=== PATIENT | female | born 1950 | race Caucasian/White ===

== ENCOUNTER 2017-04-20 09:45 | Inpatient (IN) | payer MEDICARE ==
[~2017-04-20] VITALS: Ht 161.3 cm; Wt 71.4 kg
[2017-05-04] MEDS ORDERED: ZOLP10TA5 PO (10:46)
[2017-05-04] MEDS ORDERED: CHOL400T PO (10:46)
[2017-05-04] MEDS ORDERED: MULT-1085 PO (10:46)
[2017-05-04] MEDS ORDERED: RED600TA PO (10:46)
[2017-05-04 11:12] LABS: BASOPHILS % (AUTO) 0.3 % (0-1); EOSINOPHILS # (AUTO) 0.1 X10'3 (0-0.9); EOSINOPHILS % (AUTO) 0.8 % (0-6); LYMPHOCYTES # (AUTO) 1.6 X10'3 (1.1-4.8); LYMPHOCYTES % (AUTO) 26.1 % (21-51); MEAN CORPUSCULAR HGB CONC 35.3 % (33.0-36.5); MEAN CORPUSCULAR VOLUME 93.7 FL (78-98); MEAN PLATELET VOLUME 7.4 FL (7.4-10.4); MONOCYTES # (AUTO) 0.4 X10'3 (0-0.9); MONOCYTES % (AUTO) 6.3 % (2-12); NEUTROPHILS # (AUTO) 4.1 X10'3 (1.8-7.7); NEUTROPHILS % (AUTO) 66.5 % (42-75); PRE OP HEMATOCRIT 36.6 % (35.0-45.0); PRE OP HEMOGLOBIN 12.9 g/dL (12.0-16.0); PRE OP PLATELET COUNT 262 X10'3 (140-440); RED BLOOD COUNT 3.91 X10'6 (4.20-5.60); RED CELL DISTRIBUTION WIDTH 13.5 % (11.5-14.5)
[2017-05-04 11:29] LABS: ALBUMIN 4.2 G/DL (3.4-5.0); ALBUMIN/GLOBULIN RATIO 1.2 (1.1-1.5); ALKALINE PHOSPHATASE 78 IU/L (46-116); BLOOD UREA NITROGEN 14 MG/DL (7-18); CALCIUM 9.1 MG/DL (8.5-10.1); CHLORIDE 102 MMOL/L (99-107); PRE OP ALT 28 U/L (30-65); PRE OP ANION GAP 5 (8-16); PRE OP AST 16 U/L (10-37); PRE OP BILIRUB, TOTAL 0.4 MG/DL (0.0-1.0); PRE OP GLUCOSE 113 MG/DL (70-104); PRE OP POTASSIUM 4.1 MMOL/L (3.4-5.1); PRE OP SODIUM 137 MMOL/L (135-145); TOTAL CARBON DIOXIDE 29.7 MMOL/L (24-32); TOTAL PROTEIN 7.8 G/DL (6.4-8.2); eGFR 83 ML/MIN
[2017-05-11] VITALS (10 sets, daily range): BP systolic 125–191; BP diastolic 40–92
[2017-05-11] MEDS ORDERED: ringers solution, lacted 1,000 ML IV SCH ×2 (05:00→13:42)
[2017-05-11] MEDS ORDERED: tranexamic acid inj. 720 MG in normal saline 100ml IV soln 92.8 ML IV ONE ×2 (05:30→09:30)
[2017-05-11] MEDS ORDERED: VANCOMYCIN INJ 1000 MG in NORMAL SALINE 250ml IV.SOLN IV ONE (05:30)
[2017-05-11] MEDS ORDERED: famotidine 20mg tablet PO ONE (05:30)
[2017-05-11] MEDS ORDERED: cefazolin/dext.iso 2gm/50ml 50 ML IV ONE (05:30)
[2017-05-11] MEDS ORDERED: IBUP-24 PO (12:47)
[2017-05-11] MEDS ORDERED: morphine 2 MG/ML inj. syringe IV PRN ×2 (13:45)
[2017-05-11] MEDS ORDERED: meperidine/PF 25mg/ml syringe IV PRN ×2 (13:45)
[2017-05-11] MEDS ORDERED: ondansetron/PF 4mg/2ml inj IV PRN ×2 (13:45→19:05)
[2017-05-11] MEDS ORDERED: meperidine/PF 25mg/ml syringe IV ONE (13:45)
[2017-05-11] MEDS ORDERED: proCHLORperazine 10 MG/2 ml inj IV PRN (13:45)
[2017-05-11] MEDS ORDERED: ROPIVAcaine 0.5% (5mg/ml) 30ml vial ONE (14:26)
[2017-05-11] MEDS ORDERED: ketorolac trometh. 30mg/ml inj. ONE (14:26)
[2017-05-11] MEDS ORDERED: vancomycin 1,000mg inj ONE ×2 (14:26→18:00)
[2017-05-11] MEDS ORDERED: MIDAZolam 1mg/ml 10ml vial ONE (15:29)
[2017-05-11] MEDS ORDERED: cloNIDine hcl/PF 100mcg/ml inj ONE (15:45)
[2017-05-11] MEDS ORDERED: BUPIVAcaine/PF 2.5 mg/ml (0.25%) 30ml vial ONE (16:14)
[2017-05-11] MEDS ORDERED: MORPHINE SULFATE/PF 0.5 MG/ML 10ML AMPUL ONE (16:14)
[2017-05-11] MEDS ORDERED: dexamethasone sod phosphate 4mg/ml inj. ONE (16:14)
[2017-05-11] MEDS ORDERED: propofol inj 20 ML IV ONE (16:14)
[2017-05-11] MEDS ORDERED: epiNEPHrine 1 mg/ml inj ONE (16:15)
[2017-05-11] MEDS ORDERED: ceFAZolin 1000mg inj ONE (18:15)
[2017-05-11] MEDS: potassium cl 20mEq in 1/2 NS 1,000 ML IV SCH (19:04)
[2017-05-11] MEDS ORDERED: magnesium hydroxide 30ml (MOM) UD suspension PO PRN (19:05)
[2017-05-11] MEDS ORDERED: HYDROmorphone 1 mg/ml syringe IV PRN ×2 (19:05)
[2017-05-11] MEDS ORDERED: ibuprofen 200mg tablet PO PRN (19:05)
[2017-05-11] MEDS ORDERED: mag hydrox/Alum hydrox/simeth 30ml oral suspension PO PRN (19:05)
[2017-05-11] MEDS ORDERED: bisacodyl 10mg suppository rectal RC PRN (19:05)
[2017-05-11] MEDS ORDERED: diphenhydrAMINE 25mg capsule PO PRN ×2 (19:05)
[2017-05-11] MEDS ORDERED: zolpidem 5mg tablet PO PRN (19:05)
[2017-05-11] MEDS ORDERED: acetaminophen 325mg tablet PO PRN (19:05)
[2017-05-11] MEDS ORDERED: acetaminophen 325mg tablet PO SCH (20:00)
[2017-05-11] MEDS ORDERED: vancomycin/NS 1 GM ADD-VANTAGE 250 ML IV SCH (20:00)
[2017-05-11] MEDS: celeCOXIB 100mg capsule PO SCH (20:00)
[2017-05-11] MEDS: sennosides 8.6mg tablet PO SCH (20:08)
[2017-05-11] MEDS: ketorolac tromethamine 15mg/ml inj. IV SCH (20:15)
[2017-05-11] MEDS: gabapentin 300mg capsule PO SCH (20:51)
[2017-05-11] MEDS ORDERED: tranexamic acid inj. 720 MG in normal saline 100ml IV soln 100 ML IV ONE (22:05)
[2017-05-12] MEDS: cefazolin 1gm/NS 100mL 100 ML IV SCH ×2 (00:03→08:06)
[2017-05-12] MEDS: ketorolac tromethamine 15mg/ml inj. IV SCH ×4 (01:30→20:33)
[2017-05-12] MEDS: potassium cl 20mEq in 1/2 NS 1,000 ML IV SCH ×3 (01:30→17:25)
[2017-05-12 02:00] VITALS: BP 137/66
[2017-05-12] MEDS: oxyCODONE IR 5mg (immed. release) tablet PO PRN ×5 (05:10→21:32)
[2017-05-12 06:00] VITALS: BP 133/62
[2017-05-12 06:05] LABS: BASOPHILS % (AUTO) 0.2 % (0-1); EOSINOPHILS # (AUTO) 0.1 X10'3 (0-0.9); EOSINOPHILS % (AUTO) 1.1 % (0-6); HEMATOCRIT 30.7 % (35.0-45.0); HEMOGLOBIN 10.6 g/dl (12.0-16.0); LYMPHOCYTES # (AUTO) 0.7 X10'3 (1.1-4.8); LYMPHOCYTES % (AUTO) 9.8 % (21-51); MEAN CORPUSCULAR HEMOGLOBIN 32.8 PG (27.0-31.0); MEAN CORPUSCULAR HGB CONC 34.6 % (33.0-36.5); MEAN CORPUSCULAR VOLUME 94.7 FL (78-98); MEAN PLATELET VOLUME 7.7 FL (7.4-10.4); MONOCYTES # (AUTO) 0.5 X10'3 (0-0.9); MONOCYTES % (AUTO) 6.5 % (2-12); NEUTROPHILS # (AUTO) 6.1 X10'3 (1.8-7.7); NEUTROPHILS % (AUTO) 82.4 % (42-75); PLATELET COUNT 209 X10'3 (140-440); RED BLOOD COUNT 3.25 X10'6 (4.20-5.60); RED CELL DISTRIBUTION WIDTH 13.1 % (11.5-14.5); WHITE BLOOD COUNT 7.4 X10'3 (4.5-11.0)
[2017-05-12 06:32] LABS: ANION GAP 8 (8-16); CHLORIDE 102 MMOL/L (99-107); POTASSIUM 4.5 MMOL/L (3.5-5.1); SODIUM 136 MMOL/L (135-145); TOTAL CARBON DIOXIDE 26.2 MMOL/L (24-32)
[2017-05-12] MEDS ORDERED: RED YEAST RICE 600 MG PO SCH (08:00)
[2017-05-12] MEDS: aspirin 325mg tablet PO SCH (08:06)
[2017-05-12] MEDS: celeCOXIB 100mg capsule PO SCH (08:07)
[2017-05-12] MEDS: gabapentin 300mg capsule PO SCH ×3 (08:07→20:33)
[2017-05-12] MEDS: multivitamins, therapeutics tablet PO SCH (08:07)
[2017-05-12 10:00] VITALS: BP 120/63
[2017-05-12 14:00] VITALS: BP 126/64
[2017-05-12] MEDS: Protein Shake (high protein) 240ml (8oz) cup PO SCH (18:00)
[2017-05-12 20:08] VITALS: BP 125/81
[2017-05-12] MEDS: sennosides 8.6mg tablet PO SCH (20:33)
[2017-05-12 22:00] VITALS: BP 117/49
[2017-05-13] MEDS: ketorolac tromethamine 15mg/ml inj. IV SCH (01:48)
[2017-05-13] MEDS: oxyCODONE IR 5mg (immed. release) tablet PO PRN ×3 (05:30→14:01)
[2017-05-13 06:00] VITALS: BP 132/71
[2017-05-13 06:18] LABS: BASOPHILS % (AUTO) 0.3 % (0-1); EOSINOPHILS # (AUTO) 0.1 X10'3 (0-0.9); EOSINOPHILS % (AUTO) 1.5 % (0-6); HEMATOCRIT 27.8 % (35.0-45.0); HEMOGLOBIN 9.8 g/dl (12.0-16.0); LYMPHOCYTES # (AUTO) 2.2 X10'3 (1.1-4.8); LYMPHOCYTES % (AUTO) 35.5 % (21-51); MEAN CORPUSCULAR HGB CONC 35.2 % (33.0-36.5); MEAN CORPUSCULAR VOLUME 93.7 FL (78-98); MEAN PLATELET VOLUME 7.8 FL (7.4-10.4); MONOCYTES # (AUTO) 0.6 X10'3 (0-0.9); MONOCYTES % (AUTO) 10.3 % (2-12); NEUTROPHILS # (AUTO) 3.2 X10'3 (1.8-7.7); NEUTROPHILS % (AUTO) 52.4 % (42-75); PLATELET COUNT 181 X10'3 (140-440); RED BLOOD COUNT 2.97 X10'6 (4.20-5.60); RED CELL DISTRIBUTION WIDTH 13.3 % (11.5-14.5); WHITE BLOOD COUNT 6.1 X10'3 (4.5-11.0)
[2017-05-13] MEDS: multivitamins, therapeutics tablet PO SCH (07:44)
[2017-05-13] MEDS: gabapentin 300mg capsule PO SCH ×2 (07:44→13:12)
[2017-05-13] MEDS: aspirin 325mg tablet PO SCH (07:44)
[2017-05-13] MEDS: Protein Shake (high protein) 240ml (8oz) cup PO SCH ×2 (08:00→13:12)
[2017-05-13] MEDS ORDERED: celeCOXIB 100mg capsule PO ONE (08:05)
[2017-05-13] MEDS ORDERED: celeCOXIB 100mg capsule PO SCH ×2 (08:05→20:00)
[2017-05-13] MEDS ORDERED: ASPI-1 PO (08:45)
[2017-05-13 10:00] VITALS: BP 119/54
[2017-05-13] MEDS ORDERED: acetaminophen 325mg tablet PO PRN (19:05)
== END 2017-05-13 15:30 | disposition home health service (06) | DRG 470 ==
LOC: EDSTATUS 09:45 → PAS IN 05-11 11:41 → ORTHO 4S 05-11 20:03
PROVIDERS: ADMIT Orthopaedic Surgery; ATTEND Orthopaedic Surgery
PROC: 0SRC0JZ Replacement of Right Knee Joint with Synthetic Substitute, Open Approach (ICD-10-PCS; 2017-05-11)
PROC: 3E0T3BZ Introduction of Anesthetic Agent into Peripheral Nerves and Plexi, Percutaneous Approach (ICD-10-PCS; 2017-05-11)
PROC: 8E0Y0CZ Robotic Assisted Procedure of Lower Extremity, Open Approach (ICD-10-PCS; 2017-05-11)
PROC: 8E0YXBZ Computer Assisted Procedure of Lower Extremity (ICD-10-PCS; principal; 2017-05-11 15:24)
DX: M17.11 Unilateral primary osteoarthritis, right knee (principal); D62 Acute posthemorrhagic anemia; Z79.899 Other long term (current) drug therapy; Z80.9 Family history of malignant neoplasm, unspecified; Z82.49 Family history of ischemic heart disease and other diseases of the circulatory system
CPT/HCPCS: 36415; 80051; 80053; 85025; 87070; 97110; 97116; 97161; 97530; A7000; C1713; C1758; C1776; J0171; J0690; J0735; J1100; J1885; J2250; J2274; J2405; J2704; J2795; J3370; J3490; J7030; J7120; Q0163

== ENCOUNTER 2018-06-21 14:15 | Inpatient (IN) | payer MEDICARE ==
[~2018-06-21] VITALS: Ht 160 cm; Wt 68.7 kg
[2018-09-06 10:59] LABS: BASOPHILS % (AUTO) 0.2 % (0-1); EOSINOPHILS # (AUTO) 0.1 X10'3 (0-0.9); EOSINOPHILS % (AUTO) 1.6 % (0-6); LYMPHOCYTES # (AUTO) 1.8 X10'3 (1.1-4.8); LYMPHOCYTES % (AUTO) 25.7 % (21-51); MEAN CORPUSCULAR HEMOGLOBIN 31.7 PG (27.0-31.0); MEAN CORPUSCULAR VOLUME 93.1 FL (78-98); MEAN PLATELET VOLUME 7.4 FL (7.4-10.4); MONOCYTES # (AUTO) 0.5 X10'3 (0-0.9); MONOCYTES % (AUTO) 7.7 % (2-12); NEUTROPHILS # (AUTO) 4.5 X10'3 (1.8-7.7); NEUTROPHILS % (AUTO) 64.8 % (42-75); PRE OP HEMATOCRIT 35.8 % (35.0-45.0); PRE OP HEMOGLOBIN 12.2 g/dL (12.0-16.0); PRE OP PLATELET COUNT 282 X10'3 (140-440); RED BLOOD COUNT 3.85 X10'6 (4.20-5.60); RED CELL DISTRIBUTION WIDTH 13.4 % (11.5-14.5)
[2018-09-06 11:11] LABS: ALBUMIN 3.9 G/DL (3.4-5.0); ALKALINE PHOSPHATASE 86 IU/L (46-116); BLOOD UREA NITROGEN 18 MG/DL (7-18); BUN/CREATININE RATIO 27.7 (6.6-38.0); CALCIUM 9.1 MG/DL (8.5-10.1); CHLORIDE 101 MMOL/L (99-107); CREATININE 0.65 MG/DL (0.40-0.90); PRE OP ALT 23 U/L (30-65); PRE OP ANION GAP 7 (8-16); PRE OP AST 13 U/L (10-37); PRE OP BILIRUB, TOTAL 0.3 MG/DL (0.0-1.0); PRE OP GLUCOSE 90 MG/DL (70-104); PRE OP POTASSIUM 4.3 MMOL/L (3.4-5.1); PRE OP SODIUM 135 MMOL/L (135-145); TOTAL CARBON DIOXIDE 26.8 MMOL/L (24-32); TOTAL PROTEIN 7.9 G/DL (6.4-8.2); eGFR 90 ML/MIN
[2018-09-06] MEDS ORDERED: ACET-2119 PO (13:18)
[2018-09-06] MEDS ORDERED: GABA-532 PO (13:18)
[2018-09-13] VITALS (17 sets, daily range): BP systolic 124–170; BP diastolic 48–98
[2018-09-13] MEDS ORDERED: LIDOcaine 1% (10mg/ml) 2ml vial ONE (06:35)
[2018-09-13] MEDS ORDERED: famotidine 20mg tablet PO ONE (07:15)
[2018-09-13] MEDS ORDERED: ringers solution, lacted 1,000 ML IV SCH ×2 (07:15→11:27)
[2018-09-13] MEDS ORDERED: VANCOMYCIN INJ 1000 MG in NORMAL SALINE 250ml IV.SOLN IV ONE (07:15)
[2018-09-13] MEDS ORDERED: cefazolin/dext.iso 2gm/100 ML IV ONE (07:15)
[2018-09-13] MEDS ORDERED: tranexamic acid inj. 700 MG in normal saline 100ml IV soln 100 ML IV ONE ×3 (07:15→15:32)
[2018-09-13] MEDS ORDERED: MIDAZolam 1mg/ml 10ml vial ONE (09:29)
[2018-09-13] MEDS ORDERED: fentaNYL/PF 50MCG/1 ML 2ML syringe ONE (09:30)
[2018-09-13] MEDS ORDERED: propofol inj 20 ML IV ONE (09:50)
[2018-09-13] MEDS ORDERED: ROPIVAcaine 0.5% (5mg/ml) 30ml vial ONE ×2 (11:01→11:43)
[2018-09-13] MEDS ORDERED: ketorolac trometh. 30mg/ml inj. ONE (11:01)
[2018-09-13] MEDS ORDERED: meperidine/PF 25mg/ml syringe IV PRN ×3 (11:30)
[2018-09-13] MEDS ORDERED: ondansetron/PF 4mg/2ml inj IV PRN (11:30)
[2018-09-13] MEDS ORDERED: morphine 4 MG/ML inj SYRINge IV PRN ×2 (11:30)
[2018-09-13] MEDS ORDERED: proCHLORperazine 10 MG/2 ml inj IV PRN (11:30)
[2018-09-13] MEDS ORDERED: diphenhydrAMINE 50 mg/ml inj ONE (11:43)
[2018-09-13] MEDS ORDERED: acetaminophen 325mg tablet PO PRN (12:30)
[2018-09-13] MEDS ORDERED: bisacodyl 10mg suppository rectal RC PRN (12:30)
[2018-09-13] MEDS ORDERED: diphenhydrAMINE 25mg capsule PO PRN ×2 (12:30)
[2018-09-13] MEDS ORDERED: magnesium hydroxide 30ml (MOM) UD suspension PO PRN (12:30)
--- NOTE | 2018-09-13 12:30 | NUR ---
Received from OR via bed, accompanied by Anesthesiologist. Report received. Initial physical assessment done and recorded.
[2018-09-13] MEDS: ROPIVAcaine 0.2%/PF PAIN PUMP 550 ML IJ SCH (13:48)
[2018-09-13] MEDS: acetaminophen 325mg tablet PO SCH ×2 (14:00→20:04)
--- NOTE | 2018-09-13 14:00 | NUR ---
Discharge criteria met, report to receiving floor. Transferred to room in stable condition.
[2018-09-13] MEDS: gabapentin 300mg capsule PO SCH ×2 (15:58→21:00)
[2018-09-13] MEDS: ketorolac tromethamine 15mg/ml inj. IV SCH ×2 (15:58→22:27)
[2018-09-13] MEDS: oxyCODONE IR 5mg (immed. release) tablet PO PRN (17:45)
[2018-09-13] MEDS: ceFAZolin 1GM/D5W- ADD-VANTAGE 50 ML IV SCH (17:46)
[2018-09-13] MEDS: potassium cl 20mEq in 1/2 NS 1,000 ML IV SCH ×3 (17:47→22:37)
[2018-09-13] MEDS ORDERED: vancomycin/NS 1 GM ADD-VANTAGE 250 ML IV SCH (20:00)
[2018-09-13] MEDS: HYDROmorphone 1 mg/ml syringe IV PRN (20:03)
[2018-09-13] MEDS: sennosides 8.6mg tablet PO SCH (21:00)
[2018-09-14] MEDS: ceFAZolin 1GM/D5W- ADD-VANTAGE 50 ML IV SCH (00:10)
[2018-09-14] MEDS: ketorolac tromethamine 15mg/ml inj. IV SCH ×2 (01:40→07:59)
[2018-09-14] MEDS: oxyCODONE IR 5mg (immed. release) tablet PO PRN ×5 (01:41→20:13)
[2018-09-14] MEDS: acetaminophen 325mg tablet PO SCH ×4 (01:41→20:13)
[2018-09-14 01:45] VITALS: BP 120/75
[2018-09-14 06:00] VITALS: BP 115/50
[2018-09-14 06:03] LABS: BASOPHILS % (AUTO) 0.3 % (0-1); EOSINOPHILS % (AUTO) 0.5 % (0-6); HEMATOCRIT 28.4 % (35.0-45.0); HEMOGLOBIN 9.9 g/dl (12.0-16.0); LYMPHOCYTES # (AUTO) 1.7 X10'3 (1.1-4.8); LYMPHOCYTES % (AUTO) 20.7 % (21-51); MEAN CORPUSCULAR HEMOGLOBIN 32.6 PG (27.0-31.0); MEAN CORPUSCULAR HGB CONC 34.8 g/dL (33.0-36.5); MEAN CORPUSCULAR VOLUME 93.8 FL (78-98); MEAN PLATELET VOLUME 7.8 FL (7.4-10.4); MONOCYTES # (AUTO) 0.9 X10'3 (0-0.9); MONOCYTES % (AUTO) 10.5 % (2-12); NEUTROPHILS # (AUTO) 5.6 X10'3 (1.8-7.7); PLATELET COUNT 207 X10'3 (140-440); RED BLOOD COUNT 3.03 X10'6 (4.20-5.60); RED CELL DISTRIBUTION WIDTH 13.3 % (11.5-14.5); WHITE BLOOD COUNT 8.2 X10'3 (4.5-11.0)
--- NOTE | 2018-09-14 06:28 | NUR ---
reported to days. noted pt d/c lenny this am and will work with PT. pain meds given.
--- NOTE | 2018-09-14 06:30 | NUR ---
Patient in room [facility] 4022. I have received report from SILVANA JOVEL and had the opportunity to ask questions and assume patient care.
[2018-09-14 07:03] LABS: ANION GAP 6 (8-16); CHLORIDE 100 MMOL/L (99-107); POTASSIUM 4.4 MMOL/L (3.5-5.1); SODIUM 131 MMOL/L (135-145); TOTAL CARBON DIOXIDE 24.8 MMOL/L (24-32)
[2018-09-14] MEDS: aspirin 325mg tablet PO SCH (07:57)
[2018-09-14] MEDS: HYDROmorphone 1 mg/ml syringe IV PRN (08:02)
[2018-09-14] MEDS: ondansetron/PF 4mg/2ml inj IV PRN (08:32)
[2018-09-14] MEDS: gabapentin 300mg capsule PO SCH ×3 (08:45→20:13)
[2018-09-14 10:00] VITALS: BP 113/48
[2018-09-14] MEDS: proCHLORperazine 10 MG/2 ml inj IV PRN ×2 (10:44→20:13)
[2018-09-14] MEDS: potassium cl 20mEq in 1/2 NS 1,000 ML IV SCH (12:26)
[2018-09-14 14:00] VITALS: BP 120/49
--- NOTE | 2018-09-14 16:01 | NUR ---
Joint replacement consult: Pt seen by SOFIA for written and verbal high protein education. RD reviewed high protein needs for wound healing, immune strength, high protein foods, and protein supplementation options. RD contact information provided. Pt on a regular diet reports low PO intake for breakfast and lunch r/t nausea however states her appetite is improving. Pt agreeable to vanilla Ensure pudding TID, d/w dietary. Will continue to follow. Addendum: 09/14/18 at [address] Amended: Links added.
[2018-09-14 18:00] VITALS: BP 127/47
--- NOTE | 2018-09-14 18:05 | NUR ---
Problems reprioritized. Patient report given, questions answered & plan of care reviewed with JYOTI JOVEL.
[2018-09-14] MEDS: celeCOXIB 100mg capsule PO SCH (20:12)
[2018-09-14] MEDS: sennosides 8.6mg tablet PO SCH (20:13)
[2018-09-14 22:00] VITALS: BP 127/51
[2018-09-15] MEDS: oxyCODONE IR 5mg (immed. release) tablet PO PRN ×4 (00:37→20:18)
[2018-09-15] MEDS: acetaminophen 325mg tablet PO SCH ×2 (01:44→08:28)
[2018-09-15] MEDS: HYDROmorphone inj. 0.5 MG/0.5 ML DISP.SYRIN IV PRN ×2 (04:09→08:29)
[2018-09-15 05:38] LABS: BASOPHILS % (AUTO) 0.4 % (0-1); EOSINOPHILS # (AUTO) 0.1 X10'3 (0-0.9); EOSINOPHILS % (AUTO) 1.6 % (0-6); HEMATOCRIT 26.8 % (35.0-45.0); HEMOGLOBIN 9.3 g/dl (12.0-16.0); LYMPHOCYTES # (AUTO) 1.8 X10'3 (1.1-4.8); LYMPHOCYTES % (AUTO) 27.9 % (21-51); MEAN CORPUSCULAR HEMOGLOBIN 32.8 PG (27.0-31.0); MEAN CORPUSCULAR HGB CONC 34.8 g/dL (33.0-36.5); MEAN CORPUSCULAR VOLUME 94.3 FL (78-98); MEAN PLATELET VOLUME 7.5 FL (7.4-10.4); MONOCYTES # (AUTO) 0.7 X10'3 (0-0.9); MONOCYTES % (AUTO) 10.4 % (2-12); NEUTROPHILS # (AUTO) 3.8 X10'3 (1.8-7.7); NEUTROPHILS % (AUTO) 59.7 % (42-75); PLATELET COUNT 203 X10'3 (140-440); RED BLOOD COUNT 2.84 X10'6 (4.20-5.60); RED CELL DISTRIBUTION WIDTH 13.5 % (11.5-14.5); WHITE BLOOD COUNT 6.4 X10'3 (4.5-11.0)
[2018-09-15 06:00] VITALS: BP 140/60
--- NOTE | 2018-09-15 06:10 | NUR ---
Patient in room [facility] 4022. I have received report from JYOTI JOVEL and had the opportunity to ask questions and assume patient care.
[2018-09-15] MEDS: gabapentin 300mg capsule PO SCH ×3 (08:00→20:18)
[2018-09-15] MEDS ORDERED: ASPI-1264 PO ×2 (08:05→08:49)
[2018-09-15] MEDS: celeCOXIB 100mg capsule PO SCH ×2 (08:29→20:00)
[2018-09-15] MEDS: aspirin 325mg tablet PO SCH (08:29)
[2018-09-15] MEDS: ondansetron/PF 4mg/2ml inj IV PRN (09:47)
[2018-09-15 10:00] VITALS: BP 132/47
[2018-09-15] MEDS: ROPIVAcaine 0.2%/PF PAIN PUMP 550 ML IJ SCH (11:34)
[2018-09-15] MEDS ORDERED: acetaminophen 325mg tablet PO PRN (12:30)
[2018-09-15] MEDS: proCHLORperazine 10 MG/2 ml inj IV PRN (12:48)
[2018-09-15] MEDS ORDERED: scopolamine 1.5mg patch.TD72 TD ONE (16:15)
--- NOTE | 2018-09-15 17:27 | NUR ---
ON-Q PUMP DC'D, PATIENT TOLERATED WELL.
[2018-09-15 18:00] VITALS: BP 135/58
--- NOTE | 2018-09-15 18:20 | NUR ---
Patient in room [facility] 4022. I have received report from MED Aguirre and had the opportunity to ask questions and assume patient care.
--- NOTE | 2018-09-15 18:20 | NUR ---
Problems reprioritized. Patient report given, questions answered & plan of care reviewed with TRENTON JOVEL.
[2018-09-15] MEDS: sennosides 8.6mg tablet PO SCH (20:19)
[2018-09-15 22:00] VITALS: BP 105/40
[2018-09-16] MEDS: oxyCODONE IR 5mg (immed. release) tablet PO PRN ×2 (02:44→08:43)
[2018-09-16 06:00] VITALS: BP 121/48
--- NOTE | 2018-09-16 06:18 | NUR ---
Patient in room [facility] 4022. I have received report from TRENTON JOVEL and had the opportunity to ask questions and assume patient care.
--- NOTE | 2018-09-16 06:21 | NUR ---
Problems reprioritized. Patient report given, questions answered & plan of care reviewed with MED Aguirre.
[2018-09-16 06:45] LABS: BASOPHILS % (AUTO) 0.4 % (0-1); EOSINOPHILS # (AUTO) 0.1 X10'3 (0-0.9); EOSINOPHILS % (AUTO) 1.5 % (0-6); HEMATOCRIT 28.4 % (35.0-45.0); HEMOGLOBIN 9.9 g/dl (12.0-16.0); LYMPHOCYTES # (AUTO) 1.5 X10'3 (1.1-4.8); LYMPHOCYTES % (AUTO) 25.4 % (21-51); MEAN CORPUSCULAR HEMOGLOBIN 32.7 PG (27.0-31.0); MEAN CORPUSCULAR HGB CONC 34.8 g/dL (33.0-36.5); MEAN CORPUSCULAR VOLUME 93.9 FL (78-98); MEAN PLATELET VOLUME 7.6 FL (7.4-10.4); MONOCYTES # (AUTO) 0.7 X10'3 (0-0.9); MONOCYTES % (AUTO) 11.2 % (2-12); NEUTROPHILS # (AUTO) 3.6 X10'3 (1.8-7.7); NEUTROPHILS % (AUTO) 61.5 % (42-75); PLATELET COUNT 230 X10'3 (140-440); RED BLOOD COUNT 3.03 X10'6 (4.20-5.60); RED CELL DISTRIBUTION WIDTH 13.6 % (11.5-14.5); WHITE BLOOD COUNT 5.9 X10'3 (4.5-11.0)
[2018-09-16] MEDS: gabapentin 300mg capsule PO SCH (08:00)
[2018-09-16] MEDS: celeCOXIB 100mg capsule PO SCH (08:00)
[2018-09-16] MEDS: aspirin 325mg tablet PO SCH (08:42)
[2018-09-16 10:00] VITALS: BP 119/45
--- NOTE | 2018-09-16 10:40 | NUR ---
DISCHARGED HOME SAFELY WITH . ALL BELONGINGS IN POSSESSION. PATIENT VERBALIZES UNDERSTANDING OF DISCHARGED INSTRUCTIONS.
== END 2018-09-16 10:38 | disposition home health service (06) | DRG 470 ==
LOC: EDSTATUS 08-23 07:30 → PAS IN 09-13 06:10 → EDSTATUS 09-13 10:00 → ORTHO 4S 09-13 14:00
PROVIDERS: ADMIT Orthopaedic Surgery; ATTEND Orthopaedic Surgery
PROC: 3E0T3BZ Introduction of Anesthetic Agent into Peripheral Nerves and Plexi, Percutaneous Approach (ICD-10-PCS; 2018-09-13)
PROC: 8E0YXBZ Computer Assisted Procedure of Lower Extremity (ICD-10-PCS; 2018-09-13)
PROC: 8E0YXCZ Robotic Assisted Procedure of Lower Extremity (ICD-10-PCS; 2018-09-13)
PROC: 0SRD0J9 Replacement of Left Knee Joint with Synthetic Substitute, Cemented, Open Approach (ICD-10-PCS; principal; 2018-09-13 09:27)
DX: M17.12 Unilateral primary osteoarthritis, left knee (principal); D62 Acute posthemorrhagic anemia; M25.562 Pain in left knee; Z80.8 Family history of malignant neoplasm of other organs or systems; Z82.49 Family history of ischemic heart disease and other diseases of the circulatory system; Z72.89 Other problems related to lifestyle; Z79.899 Other long term (current) drug therapy
CPT/HCPCS: 36415; 80051; 80053; 82948; 85025; 87070; 97110; 97116; 97162; 97530; A4615; A6455; A7000; C1713; C1758; C1776; G0378; J0690; J0780; J1170; J1200; J1885; J2250; J2405; J2704; J2795; J3010; J3370; J3490; J7030; J7120

== ENCOUNTER 2018-09-18 09:15 | Emergency (ER) | payer MEDICARE ==
[~2018-09-18] VITALS: Ht 162.6 cm; Wt 69.5 kg
[~2018-09-18 09:15] MED LIST: ACET-2119 PO; ASPI-1264 PO; GABA-532 PO
[2018-09-18 09:59] VITALS: BP 163/64
--- NOTE | 2018-09-18 13:15 | NUR ---
pt c/o left knee draining blood, had knee replacement by Dr Marino, ivan'd home on Wednesday, surgical site is healing well, +swelling, +red fluid draining, no fever/chills, pt able to amb with limp and using cane, pt said she has been keeping left leg elevated at home, using ice and pain med
--- NOTE | 2018-09-18 13:53 | NUR ---
MILLWRIGHT APPRENTICE redressed wound to left knee with nonadherent, 4x4 and stevo wrap, no bleeding noted
[2018-09-21] MEDS ORDERED: HYDR-4353 PO (13:36)
== END 2018-09-18 13:53 | disposition home or self-care (01) ==
LOC: ER 09:16
DX: M96.830 Postprocedural hemorrhage of a musculoskeletal structure following a musculoskeletal system procedure (principal); I10 Essential (primary) hypertension; Z98.890 Other specified postprocedural states; Z79.82 Long term (current) use of aspirin; Z79.899 Other long term (current) drug therapy
CPT/HCPCS: 73560; 99283

== ENCOUNTER 2020-12-12 09:01 | Day surgery (SDC) | payer MEDICARE ==
[2020-12-11 10:31] LABS: BASOPHILS % (AUTO) 0.3 % (0-1); EOSINOPHILS % (AUTO) 0.7 % (0-6); HEMATOCRIT 36.4 % (35.0-45.0); HEMOGLOBIN 12.3 g/dl (12.0-16.0); LYMPHOCYTES # (AUTO) 1.5 X10'3 (1.1-4.8); LYMPHOCYTES % (AUTO) 21.3 % (21-51); MEAN CORPUSCULAR HEMOGLOBIN 32.8 PG (27.0-31.0); MEAN CORPUSCULAR HGB CONC 33.9 g/dL (33.0-36.5); MEAN CORPUSCULAR VOLUME 96.7 FL (78-98); MEAN PLATELET VOLUME 7.5 FL (7.4-10.4); MONOCYTES # (AUTO) 0.5 X10'3 (0-0.9); MONOCYTES % (AUTO) 7.2 % (2-12); NEUTROPHILS # (AUTO) 4.8 X10'3 (1.8-7.7); NEUTROPHILS % (AUTO) 70.5 % (42-75); PLATELET COUNT 300 X10'3 (140-440); RED BLOOD COUNT 3.76 X10'6 (4.20-5.60); RED CELL DISTRIBUTION WIDTH 13.2 % (11.5-14.5); WHITE BLOOD COUNT 6.8 X10'3 (4.5-11.0)
[2020-12-11 10:37] LABS: ALBUMIN 3.8 G/DL (3.4-5.0); ANION GAP 10 (8-16); BLOOD UREA NITROGEN 15 MG/DL (7-18); BUN/CREATININE RATIO 20.8 (6.6-38.0); CALCIUM 8.8 MG/DL (8.5-10.1); CHLORIDE 102 MMOL/L (99-107); CREATININE 0.72 MG/DL (0.40-0.90); GLUCOSE 96 MG/DL (70-104); POTASSIUM 4.3 MMOL/L (3.5-5.1); SODIUM 139 MMOL/L (135-145); TOTAL CARBON DIOXIDE 26.8 MMOL/L (24-32); eGFR 80 ML/MIN
[2020-12-11 10:40] LABS: PARTIAL THROMBOPLASTIN TIME 27 SECONDS (22-32)
[2020-12-12] VITALS (13 sets, daily range): BP systolic 114–157; BP diastolic 51–75
[~2020-12-12] VITALS: Ht 157.5 cm; Wt 71.4 kg
[~2020-12-12 09:01] MED LIST changes: -ASPI-1264 PO; +HYDR-4353 PO
[2020-12-12] MEDS ORDERED: diphenhydrAMINE 25mg capsule PO PRN (09:20)
[2020-12-12] MEDS ORDERED: normal saline 1,000 ML IV SCH (09:20)
[2020-12-12] MEDS ORDERED: LORazepam 0.5 MG tablet PO PRN (09:20)
[2020-12-12] MEDS ORDERED: LIDOcaine/PRILOcaine 5gm cream TP ONE (09:20)
[2020-12-12] MEDS ORDERED: AMLO-93 PO (09:27)
[2020-12-12] MEDS ORDERED: ZOLP10TA PO (09:28)
[2020-12-12] MEDS ORDERED: IBUP-1984 PO (09:29)
[2020-12-12] MEDS ORDERED: CIDE500T PO (09:32)
[2020-12-12] MEDS ORDERED: MV-M1TAB19 PO (09:34)
[2020-12-12] MEDS ORDERED: UBID30CA11 PO (09:35)
[2020-12-12] MEDS ORDERED: RED600CA2 PO (09:36)
[2020-12-12] MEDS ORDERED: MULT-1085 PO (09:37)
[2020-12-12] MEDS ORDERED: fentaNYL/PF 50MCG/1 ML 2ML syringe ONE (10:12)
[2020-12-12] MEDS ORDERED: LIDOcaine 1% (10mg/ml)w/preservative injection 20ml MDV ONE (10:12)
[2020-12-12] MEDS ORDERED: verapamil 2.5 mg/ml inj IV ONE (10:12)
[2020-12-12] MEDS ORDERED: midazolam 1 mg/ML 2ml injection ONE (10:12)
[2020-12-12] MEDS ORDERED: nitroGLYCERIN-Tridil 50MG/D5W 250 ML IV ONE (10:12)
[2020-12-12] MEDS ORDERED: iohexol 350MG/ML 100ml bottle IV ONE (10:13)
[2020-12-12] MEDS ORDERED: heparin 1,000unit/ml 10ml vial 10 ML ONE (10:13)
[2020-12-12] MEDS ORDERED: iohexol 350 MG/ML 50ML vial IV ONE (10:13)
[2020-12-12 12:38] LABS: ISTAT HGB ART 12.6 g/dl (12.0-16.0); ISTAT Hct ART 37 %PCV (35-48); ISTAT O2 SATURATION ARTERIAL 99 % (95-98); ISTAT SOURCE ART
[2020-12-16 05:34] LABS: ISTAT Hct MIX 37 %PCV (35-48); ISTAT O2 SATURATION MIX VENOUS 81 % (60-80); ISTAT SOURCE VEN
[2020-12-30] MEDS ORDERED: AMLO5TAB PO (10:47)
== END 2020-12-12 19:00 | disposition home or self-care (01) ==
LOC: SSTAY O 09:01
PROVIDERS: ATTEND Internal Medicine Cardiovascular Disease
DX: R94.39 Abnormal result of other cardiovascular function study (principal); I25.10 Atherosclerotic heart disease of native coronary artery without angina pectoris; I10 Essential (primary) hypertension; E78.5 Hyperlipidemia, unspecified; M19.90 Unspecified osteoarthritis, unspecified site; Z98.890 Other specified postprocedural states; Z79.899 Other long term (current) drug therapy; Z79.01 Long term (current) use of anticoagulants; Z82.49 Family history of ischemic heart disease and other diseases of the circulatory system
CPT/HCPCS: 36415; 76937; 80048; 82803; 85014; 85025; 85610; 85730; 93005; 93460; 99152; 99153; C1769; J1644; J2001; J2250; J3010; J7030; Q0163; Q9967; A4620; A5120; A6258; C1751; J3490

== ENCOUNTER 2020-12-31 05:36 | Day surgery (SDC) | payer MEDICARE ==
[2020-12-24 16:15] LABS: BASOPHILS % (AUTO) 0.2 % (0-1); EOSINOPHILS # (AUTO) 0.1 X10'3 (0-0.9); EOSINOPHILS % (AUTO) 0.9 % (0-6); LYMPHOCYTES # (AUTO) 1.9 X10'3 (1.1-4.8); LYMPHOCYTES % (AUTO) 26.1 % (21-51); MEAN CORPUSCULAR HEMOGLOBIN 32.8 PG (27.0-31.0); MEAN CORPUSCULAR VOLUME 96.3 FL (78-98); MEAN PLATELET VOLUME 7.8 FL (7.4-10.4); MONOCYTES # (AUTO) 0.5 X10'3 (0-0.9); NEUTROPHILS # (AUTO) 4.7 X10'3 (1.8-7.7); NEUTROPHILS % (AUTO) 65.8 % (42-75); PRE OP HEMATOCRIT 37.2 % (35.0-45.0); PRE OP HEMOGLOBIN 12.7 g/dL (12.0-16.0); PRE OP PLATELET COUNT 309 X10'3 (140-440); RED BLOOD COUNT 3.87 X10'6 (4.20-5.60); RED CELL DISTRIBUTION WIDTH 12.9 % (11.5-14.5)
[2020-12-24 16:15] LABS: CLARITY,URINE CLEAR (Clear); COLOR,URINE YELLOW (Yellow); UA COLLECTION TYPE CLN CATCH MIDSTREAM
[2020-12-24 16:16] LABS: GLUCOSE, URINE NEGATIVE (Neg); KETONES,URINE NEGATIVE (Neg); OCCULT BLOOD,URINE SMALL (Neg)
[2020-12-24 16:17] LABS: LEUKOCYTE ESTERASE ,URINE NEGATIVE (Neg); NITRITES, URINE NEGATIVE (Neg); UROBILINOGEN,URINE 0.2 E.U/dL (0.2-1.0)
[2020-12-24 16:21] LABS: MUCUS STRANDS FEW /LPF (Neg); SQUAMOUS EPITHELIAL CELL,UR FEW /LPF (FEW)
[2020-12-24 16:22] LABS: BACTERIA,URINE FEW /HPF (Neg); WBC,URINE 0-4 /HPF (0-4)
[2020-12-24 16:23] LABS: PROTEIN,URINE TRACE mg/dl (Neg)
[2020-12-24 16:24] LABS: CELLULAR CAST 0-4 /LPF (NEGATIVE)
[2020-12-24 16:37] LABS: ALBUMIN 4.4 G/DL (3.4-5.0); ALBUMIN/GLOBULIN RATIO 1.3 (1.1-1.5); ALKALINE PHOSPHATASE 94 IU/L (46-116); BLOOD UREA NITROGEN 15 MG/DL (7-18); BUN/CREATININE RATIO 18.5 (6.6-38.0); CALCIUM 9.5 MG/DL (8.5-10.1); CHLORIDE 102 MMOL/L (99-107); CREATININE 0.81 MG/DL (0.40-0.90); PRE OP ALT 24 U/L (30-65); PRE OP ANION GAP 11 (8-16); PRE OP AST 13 U/L (10-37); PRE OP BILIRUB, TOTAL 0.3 MG/DL (0.0-1.0); PRE OP GLUCOSE 89 MG/DL (70-104); PRE OP POTASSIUM 3.7 MMOL/L (3.4-5.1); PRE OP SODIUM 139 MMOL/L (135-145); TOTAL CARBON DIOXIDE 26.1 MMOL/L (24-32); TOTAL PROTEIN 7.9 G/DL (6.4-8.2); eGFR 70 ML/MIN
[~2020-12-31] VITALS: Ht 160 cm; Wt 70.3 kg
[2020-12-31] VITALS (17 sets, daily range): BP systolic 102–175; BP diastolic 45–88
[~2020-12-31 05:36] MED LIST changes: +AMLO5TAB PO; +CIDE500T PO; -HYDR-4353 PO; +IBUP-1984 PO; +MULT-1085 PO; +MV-M1TAB19 PO; +RED600CA2 PO; +ZOLP10TA PO; +acetaminophen 325mg tablet PO ONE; +cefazolin/dext.iso 2gm/100ml IV ONE; +celeCOXIB 100mg capsule PO ONE; +famotidine 20mg tablet PO ONE; +gabapentin 300mg capsule PO ONE; +metoclopramide 5 mg/ml inj IV ONE; +oxyCODONE SR 10mg (sust. release) tab -2 tabs (20mg) PO ONE; +tranexamic acid 1gm/0.7% sal. 100 ML IV ONE; +vancomycin 1,500 MG in NS 300ml IV soln IV ONE
[2020-12-31] MEDS: ringers solution, lacted 1,000 ML IV SCH ×2 (06:21→10:00)
[2020-12-31] MEDS: potassium cl 20mEq in 1/2 NS 1,000 ML IV SCH ×3 (06:30→20:18)
[2020-12-31] MEDS ORDERED: HYDROcodone/acetaminophen 10/325mg tab PO PRN (06:30)
[2020-12-31] MEDS ORDERED: diphenhydrAMINE 25mg capsule PO PRN ×2 (06:30)
[2020-12-31] MEDS ORDERED: HYDROmorphone 1 mg/ml syringe IV PRN (06:30)
[2020-12-31] MEDS ORDERED: acetaminophen 325mg tablet PO PRN (06:30)
[2020-12-31] MEDS ORDERED: HYDROmorphone inj. 0.5 MG/0.5 ML DISP.SYRIN IV PRN (06:30)
[2020-12-31] MEDS ORDERED: magnesium hydroxide 30ml (MOM) UD suspension PO PRN (06:30)
[2020-12-31] MEDS ORDERED: bisacodyl 10mg suppository rectal RC PRN (06:30)
[2020-12-31] MEDS ORDERED: zolpidem 5mg tablet PO PRN (06:30)
[2020-12-31] MEDS ORDERED: ketorolac trometh. 30mg/ml inj. ONE (06:38)
[2020-12-31] MEDS ORDERED: cloNIDine hcl/PF 100mcg/ml inj ONE (06:39)
[2020-12-31] MEDS ORDERED: vancomycin 1,000mg inj ONE (06:39)
[2020-12-31] MEDS ORDERED: epiNEPHrine 1 mg/ml inj ONE (06:39)
[2020-12-31] MEDS ORDERED: ROPIVAcaine 0.5% (5mg/ml) 30ml vial ONE ×3 (06:39→07:37)
[2020-12-31] MEDS ORDERED: MIDAZolam 1mg/ml 10ml vial ONE (06:59)
[2020-12-31] MEDS ORDERED: fentaNYL/PF 50MCG/1 ML 2ML syringe ONE (07:00)
[2020-12-31] MEDS ORDERED: fentaNYL/PF 50MCG/1 ML 2ML syringe IV PRN ×2 (07:40)
[2020-12-31] MEDS ORDERED: morphine 4 MG/ML inj SYRINge IV PRN (07:40)
[2020-12-31] MEDS ORDERED: hydrALAZINE 20mg/ml inj. IV PRN (07:40)
[2020-12-31] MEDS ORDERED: ringers solution, lacted 1,000 ML IV SCH (07:40)
[2020-12-31] MEDS ORDERED: ondansetron/PF 4mg/2ml inj IV PRN (07:40)
[2020-12-31] MEDS ORDERED: morphine 2 MG/ML inj. syringe IV PRN (07:40)
[2020-12-31] MEDS ORDERED: labetalol 20mg/4ml (5mg/ml) syringe IV PRN (07:40)
[2020-12-31] MEDS: gabapentin 300mg capsule PO SCH ×3 (08:00→20:27)
--- NOTE | 2020-12-31 08:20 | NUR ---
Received from OR via , accompanied by Anesthesiologist DR JEAN and report given by Anesthesiolgist. PT PRESENT WITH 18G RIGHT HAND, RIGHT HIP DRESSING DRY AND INTACT WITH ATRAS DRESSING. VSS. Addendum: 12/31/20 at 0832 by Christine Dorman RN, RN Amended: Links added.
--- NOTE | 2020-12-31 09:07 | NUR ---
PT RESTING, NO SIGN OF DISTRESS NOTED AT THIS TIME. PT PAIN 0/10. Addendum: 12/31/20 at 0908 by Christine Dorman RN, RN Amended: Links added.
--- NOTE | 2020-12-31 09:30 | NUR ---
Patient in room . I have received report from shipping support and had the opportunity to ask questions and assume patient care.
--- NOTE | 2020-12-31 09:30 | NUR ---
Report called to receiving nurse WINDY JOVEL. Transferred via HOSPITAL BED, 1 BAG Belongings TAKEN TO PT ROOM. WINDY RN A BEDSIDE TO RECEIVE PT. VSS. . Special Issues communicated to receiving nurse. Addendum: 12/31/20 at 0950 by Christine Dorman RN RN Amended: Links added.
--- NOTE | 2020-12-31 09:46 | NUR ---
Patient arrived to floor and was made familiar with room and started on post op vitals at this time.
[2020-12-31] MEDS ORDERED: tranexamic acid inj. 700 MG in normal saline 100ml IV soln 93 ML IV ONE (11:30)
[2020-12-31] MEDS: aspirin 325mg tablet PO SCH (13:10)
[2020-12-31] MEDS: multivitamins, therapeutics tablet PO SCH (13:11)
[2020-12-31] MEDS: ondansetron/PF 4mg/2ml inj IV PRN ×2 (13:12→20:05)
[2020-12-31] MEDS: cefazolin/dext.iso 2gm/100ml 100 ML IV SCH (16:38)
--- NOTE | 2020-12-31 18:16 | NUR ---
Problems reprioritized. Patient report given, questions answered & plan of care reviewed with Terri JOVEL.
--- NOTE | 2020-12-31 18:30 | NUR ---
Patient in room [facility]. I have received report from WINDY JOVEL and had the opportunity to ask questions and assume patient care.
[2020-12-31] MEDS ORDERED: vancomycin/NS 1 GM ADD-VANTAGE 250 ML IV SCH (20:00)
--- NOTE | 2020-12-31 20:00 | NUR ---
AGREED WITH STUDENT'S PHYSICAL ASSESSMENT.
[2020-12-31] MEDS: ascorbic acid 500mg tablet PO SCH (20:28)
[2020-12-31] MEDS ORDERED: sennosides 8.6mg tablet PO SCH (21:00)
[2020-12-31] MEDS ORDERED: amLODIPine 5mg tablet PO SCH (21:00)
[2021-01-01] VITALS: BP 145/65
[2021-01-01] MEDS: cefazolin/dext.iso 2gm/100ml 100 ML IV SCH (01:04)
[2021-01-01] MEDS: HYDROcodone/acetaminophen 10/325mg tab PO PRN ×3 (03:03→14:31)
[2021-01-01 06:30] LABS: BASOPHILS % (AUTO) 0.3 % (0-1); EOSINOPHILS # (AUTO) 0.1 X10'3 (0-0.9); EOSINOPHILS % (AUTO) 0.8 % (0-6); HEMATOCRIT 29.6 % (35.0-45.0); LYMPHOCYTES # (AUTO) 1.8 X10'3 (1.1-4.8); LYMPHOCYTES % (AUTO) 26.6 % (21-51); MEAN CORPUSCULAR HEMOGLOBIN 33.1 PG (27.0-31.0); MEAN CORPUSCULAR HGB CONC 33.9 g/dL (33.0-36.5); MEAN CORPUSCULAR VOLUME 97.6 FL (78-98); MEAN PLATELET VOLUME 7.6 FL (7.4-10.4); MONOCYTES # (AUTO) 0.6 X10'3 (0-0.9); MONOCYTES % (AUTO) 8.5 % (2-12); NEUTROPHILS # (AUTO) 4.4 X10'3 (1.8-7.7); NEUTROPHILS % (AUTO) 63.8 % (42-75); PLATELET COUNT 220 X10'3 (140-440); RED BLOOD COUNT 3.03 X10'6 (4.20-5.60); RED CELL DISTRIBUTION WIDTH 13.1 % (11.5-14.5); WHITE BLOOD COUNT 6.9 X10'3 (4.5-11.0)
--- NOTE | 2021-01-01 06:30 | NUR ---
Patient in room [facility]. I have received report from WINDY JOVEL and had the opportunity to ask questions and assume patient care.
[2021-01-01 06:55] LABS: ANION GAP 7 (8-16); CHLORIDE 105 MMOL/L (99-107); POTASSIUM 4.4 MMOL/L (3.5-5.1); SODIUM 139 MMOL/L (135-145); TOTAL CARBON DIOXIDE 26.9 MMOL/L (24-32)
[2021-01-01 07:44] VITALS: BP 102/43
[2021-01-01] MEDS: gabapentin 300mg capsule PO SCH ×2 (08:50→13:42)
[2021-01-01] MEDS: ascorbic acid 500mg tablet PO SCH (08:50)
[2021-01-01] MEDS: aspirin 325mg tablet PO SCH (08:50)
[2021-01-01] MEDS: multivitamins, therapeutics tablet PO SCH (08:51)
[2021-01-01] MEDS: potassium cl 20mEq in 1/2 NS 1,000 ML IV SCH ×2 (08:58→14:30)
[2021-01-01 11:00] VITALS: BP 103/47
--- NOTE | 2021-01-01 13:20 | NUR ---
Patient was discharged to her home with family. patient had all medications and was released by pt. patient iv was taken out at time of discharge and minimal bleeding was noted and can canula was intact upon inspection. Patient left with all belonings with family in private vehicle with all materials from PT.
--- NOTE | 2021-01-01 13:36 | NUR ---
Joint Surgery Consult: Pt s/p R hip surgery this admit. Pt seen by SOFIA for written/verbal high protein ed w/ RD contact information provided. SOFIA encouraged pt to contact dietitian's office if further questions/concerns this admit. Addendum: 01/01/21 at [address] Amended: Links added.
[2021-01-01] MEDS ORDERED: celeCOXIB 100mg capsule PO SCH (20:00)
== END 2021-01-01 15:14 | disposition home or self-care (01) ==
LOC: PAS 05:36 → SUR 3N 06:29 → PAS 01-01 15:14
PROVIDERS: ATTEND Orthopaedic Surgery
DX: M16.11 Unilateral primary osteoarthritis, right hip (principal); I10 Essential (primary) hypertension; M17.0 Bilateral primary osteoarthritis of knee; Z79.899 Other long term (current) drug therapy; Z72.89 Other problems related to lifestyle; Z79.82 Long term (current) use of aspirin; Z96.651 Presence of right artificial knee joint; Z98.890 Other specified postprocedural states; Z20.822 Contact with and (suspected) exposure to COVID-19; Z82.49 Family history of ischemic heart disease and other diseases of the circulatory system; Z80.9 Family history of malignant neoplasm, unspecified
CPT/HCPCS: 27130; 36415; 72170; 80051; 80053; 81001; 82948; 85025; 86885; 86900; 86901; 87081; 97110; 97116; 97161; 97530; C1776; J0171; J0735; J1170; J1885; J2250; J2405; J2765; J3010; J3370; J7040; J7120; U0003; U0005; Z7506; Z7508; Z7512; A7000; G0378; J2795; J3480